=== PATIENT | female | born 1945 | race Caucasian/White ===

== ENCOUNTER 2022-08-09 19:23 | Emergency (ER) | payer MEDICARE, OTHER ==
[~2022-08-09] VITALS: Ht 157.5 cm; Wt 59.9 kg
== END 2022-08-09 22:02 | disposition home or self-care (01) ==
LOC: ER 19:23
DX: S52.571A Other intraarticular fracture of lower end of right radius, initial encounter for closed fracture (principal); W18.30XA Fall on same level, unspecified, initial encounter; Y92.520 Airport as the place of occurrence of the external cause; F17.200 Nicotine dependence, unspecified, uncomplicated
CPT/HCPCS: 73110; A9270; J1885